=== PATIENT | male | born 1950 | race Caucasian/White ===

== ENCOUNTER 2024-07-17 20:33 | Inpatient (IN) | payer OTHER, SELFPAY ==
[2024-07-17] VITALS (11 sets, daily range): BP systolic 93–129; BP diastolic 57–86; BMI 33.0; BMI 32.7
--- NOTE | 2024-07-17 17:56 | ED.GENMED ---
History of Present Illness
General
Chief Complaint: Fever
Source: patient
History of Present Illness
History of Present Illness:
74-year-old male identified to have a presents to the emergency room by ambulance due to fever. Patient was noted to be hypoxic by paramedics placed on nonrebreather. Patient endorses cough, shortness of breath, headache. Patient also has a wound
on his right lower extremity for which she has been taking doxycycline.
Past History
Past History
ED Past Medical History: Arrthythmia, HTN, Hypercholesterolemia and IDDM
ED Past Surgical History: Cholecystectomy and Orthopedic
Social History
Tobacco: Former smoker
Alcohol: Occasional
Phy Exam
Physical Exam
Physical Exam:
General: Awake, Alert, Oriented X3. Appears ill but nontoxic
Vitals: Febrile, tachycardic, hypoxic
Head: Atraumatic
Eyes: Pupils equal, EOMI
Throat: Airway intact, no exudates
Neck: Trachea midline
Lungs: Clear and equal b/l
Heart: Regular rate, no murmurs
Abd: Soft, Nontender, No pulsatile mass
Neuro: Nonfocal
Skin: Flushed,
Extremities: There is a female show right lateral lower extremity.
Course
Orders/Labs/Results
Orders:
Orders
07/17/24 17:36
EKG [Electrocardiogram (*1)] Urgent
Reason for Study: Tachycardia
EKG- Treatment ONCE
07/17/24 17:55
0.9% Sodium Chloride 1000 ml [Nss] 1,000 ml IV BOLUS
Ipratropium/Albuterol Sulfate [Duoneb] 3 ml INH R NOW STA
CR Chest - 2 Views Urgent
Comment:
Reason For Exam: fever, hypoxia
07/17/24 18:00
Acetaminophen [Tylenol] 650 mg PO NOW STA
07/17/24 18:25
CBC/With Diff [Complete Blood Count/With Diff] Urgent
CMP [Comprehensive Metabolic Panel] Urgent
COVID-19 Antigen Urgent
Source: Nasal Swab
Lactate Level [Lactic Acid] Urgent
Urinalysis Reflex To Culture Urgent
Date Specimen was Collected: 07/17/24
Time Specimen was Collected: 17:36
Blood Culture Urgent
MICHAEL Source: Blood/Venous
Specimen Description:
Influenza A+B Rapid Molecular Urgent
MICHAEL Source: Nasal Swab
Specimen Description:
07/17/24 19:20
Azithromycin 500 mg/250 ml [Zithromax Infusion] 500 mg in 250 ml IV NOW
CefTRIAXone [Rocephin] 1,000 mg IV NOW STA
07/17/24 20:17
Admit/Transfer Patient As Directed
Co-Sign Provider:
Level of Care: Inpatient admission
Assign to:: Telemetry
Physician / Group: danielle
Diagnosis: acute hypoxic respiratory failure
Reason for Telemetry: Arrhythmia
Date to Stop Telemetry: 07/20/24
Time to Stop Telemetry: 11:00
Reason for Hospitalization: acute hypoxic respiratory failure
Expected length of stay greater than two midnights?: Yes
ELOS- Estimated Length of Stay in days: 3
I certify the patient meets the requirements for IP care: Yes
07/17/24 20:19
PRN Pain Medication Management As Directed
May give lesser potent ordered pain med per pt: Yes
preference::
Protocol:: Medication orders for pain may be administered in a
manner that supports deferring to patient preference
when the pt is:
- Requesting an ordered lesser potent pain medication.
Least to most potent pain medications are defined
as: acetaminophen < NSAID < tramadol < opioids
(morphine, oxycodone, hydromorphone).
- Requesting a lesser dose of the same medication IF
ORDERED.
- Requesting a less intrusive route of administration
if both routes are prescribed by the provider (PO <
IV).
07/17/24 20:21
Code Status As Directed
Resuscitation Status: Full Code
07/20/24 11:00
DC Protocol for Telemetry ONCE
Abnormal Lab Results
07/17/24
18:25
WBC 14.9 H 10^3/uL
(4.8-10.8)
RBC 4.34 L 10^6/uL
(4.70-6.10)
MCH 32.3 H pg
(27.0-31.0)
MPV 10.8 H fL
(7.4-10.4)
Abs Immat Gran (auto) 0.1 H 10^3/uL
(0-0.05)
Absolute Neuts (auto) 12.7 H 10^3/uL
(1.4-6.5)
Absolute Lymphs (auto) 0.9 L 10^3/uL
(1.2-3.4)
Absolute Monos (auto) 1.1 H 10^3/uL
(0.1-0.6)
Immature Gran % 0.6 H %
(0-0.5)
Neutrophils % 85.1 H %
(42.2-75.2)
Lymphocytes % 5.8 L %
(20.5-51.1)
Sodium 134 L mmol/L
(135-145)
Chloride 94 L mmol/L
(98-107)
Glucose 187 H mg/dl
(70-99)
07/17/24 18:25
07/17/24 18:25
Vital Signs
Initial and Last Documented VS:
Initial Vital Signs
BP
129/68
07/17/24 17:36
Last Documented Vital Signs
Temp Pulse Resp BP Pulse Ox
99.6 F 105 22 93/59 94
07/17/24 19:19 07/17/24 20:00 07/17/24 20:00 07/17/24 20:00 07/17/24 20:00
MDM/Problems Addressed
Differential Diagnosis Includes:
Bacterial pneumonia, COVID, acute bronchitis, cellulitis
MDM/Problems Addressed:
Patient's white blood cell count is 14.9. Chemistries are essentially unremarkable. Urine is negative. COVID test is negative. Chest x-ray shows a left lower lobe infiltrate. Patient started on antibiotics for community-acquired pneumonia.
Right lower extremity has a healing wound. There is some surrounding erythema please been taking Doxy for some days. I would not start any other treatment in the antibiotics for community-acquired ammonia.
*Radiology
Radiology exam reviewed: preliminary read by ED provider (Personally viewed patient's chest x-ray to left lower lobe infiltrate)
*Pulse Oximetry
Patient hypoxic: yes
*EKG
Interpreted by ED Provider?: Yes
Heart Rate: 109
Rate: tachycardiac
Rhythm: sinus tachycardia
Ischemia: non-specific ST changes
*Managed Care Provider Interpretation
Rate: tachycardiac
Interpretation: abnormal
Rhythm: sinus tachycardia
*Critical Care Note
Total Time (30-74mins, 75-104mins- exclusive of procedures): Not Applicable
Data Reviewed
Review of Other/Old Records Reveals: Discharge Summary
Patient Management
Social determinants of health affecting care: Strong social support
Discussion with other providers: Hospitalist
ED Attending Note
-
Portions of this chart may have been created with voice recognition software.� Occasional wrong word or��sound alike� substitutions may have occurred due to the inherent limitations of voice recognition software.
Discharge Plan
Departure
Patient Disposition: Admit
Date of Disposition: 07/17/24
Time of Disposition: 19:24
Admit to: Med/Surg
Presentation/result/management discussed w/ accepting MD/DO: Hospitalist
Condition: Fair
Discharge Problem:
Pneumonia, Hypoxia
Prescriptions:
No Action
primidone 50 MG tablet
150 mg PO HS
cyanocobalamin (vitamin B-12) 1,000 MCG tablet
1,000 mcg PO DAILY
repaglinide 1 MG tablet
1 mg PO MEALS
metoprolol succinate 25 MG tablet extended release 24 hr
12.5 mg PO DAILY
tramadol 50 MG tablet
50 mg PO Q8HPRN PRN (Reason: moderate-severe pain)
Patient Comments:
07/17/2024: last filled 07/17/24, 21 tabs for 7 days from [facility]
insulin degludec [Tresiba FlexTouch U-100] 100 UNIT/ML insulin pen
63 unit SC HS
triamterene-hydrochlorothiazid 37.5-25 mg Capsule
1 cap PO DAILY
Eliquis 5 mg tablet
5 mg PO BID Qty: 180 3RF
pantoprazole [pantoprazole] 40 mg tablet,delayed release (DR/EC)
40 mg PO BID Qty: 60 0RF
Rx Instructions:
Take twice a day for 30 days post procedure, then stop
doxycycline hyclate 100 mg capsule
100 mg PO BID
gabapentin 300 mg capsule
300 mg PO TID
tobramycin-dexamethasone 0.3-0.1 % drops,suspension
1 drp BOTH EYES BID
cholecalciferol (vitamin D3) 125 mcg (5,000 unit) Tablet
125 mcg PO DAILY
Mounjaro 7.5 mg/0.5 mL pen injector
7.5 mg SC TU
Interventions
Interventions:
*Risk Screen - Suicide Last Done: 07/17/24 17:40
*General Assessment Last Done: 07/17/24 17:40
*Neglect/Abuse Screening Last Done: 07/17/24 17:40
ED- Fall Risk Assessment Last Done: 07/17/24 18:31
*ED COVID-19 Vaccine History Last Done: 07/17/24 18:37
ED- Neurological Assessment Last Done: 07/17/24 18:31
ED-Skin Assessment Last Done: 07/17/24 18:31
Discharge Date and Time
Print Language: LIBYAN
[2024-07-17] MEDS: TYLENOL 650 MG PO (18:11)
[2024-07-17] MEDS: DUONEB 3 ML INH (18:12)
[2024-07-17] MEDS: NSS 1000 IV ×2 (18:24→22:16)
[2024-07-17 18:37] LABS: % Basophils 0.3 % (0-2); % Eosinophils 0.7 % (0-6); % Immature Granulocytes 0.6 % (0-0.5); % Lymphocytes 5.8 % (20.5-51.1); % Monocytes 7.5 % (1.7-9.3); % Neutrophils 85.1 % (42.2-75.2); Absolute Basophils 0.1 10^3/uL (0-0.2); Absolute Eosinophils 0.1 10^3/uL (0-0.7); Absolute Immature Granulocytes 0.1 10^3/uL (0-0.05); Absolute Lymphocytes 0.9 10^3/uL (1.2-3.4); Absolute Monocytes 1.1 10^3/uL (0.1-0.6); Absolute Neutrophils 12.7 10^3/uL (1.4-6.5); Hematocrit 39.1 % (39.0-52.0); Mean Corp Hgb Conc. 35.8 g/dL (33.0-37.0); Mean Corpuscular Hgb 32.3 pg (27.0-31.0); Mean Corpuscular Volume 90.1 fL (80.0-94.0); Mean Platelet Volume 10.8 fL (7.4-10.4); Nucleated Red Blood Cells % 0 % (-); Platelet Count 185 10^3/uL (130-400); Red Blood Cell Count 4.34 10^6/uL (4.70-6.10); Red Cell Dist. Width 12.8 % (11.5-14.5); White Blood Cell Count 14.9 10^3/uL (4.8-10.8)
[2024-07-17 18:42] LABS: Urine Albumin Trace (Neg - Trace); Urine Bilirubin Negative (Negative); Urine Character Clear (Clear); Urine Color Yellow; Urine Glucose Negative (Negative); Urine Ketone Negative (Negative); Urine Leukocyte Negative (Negative); Urine Nitrite Negative (Negative); Urine Occult Blood Negative (Negative); Urine Urobilinogen Negative (Neg - 1+)
[2024-07-17 18:50] LABS: Lactic Acid 1.5 mmol/L (0.7-2.0)
[2024-07-17 18:59] LABS: ALT (SGPT) 17 U/L (0-50); AST (SGOT) 28 U/L (17-59); Albumin 4.2 g/dl (3.5-5.0); Alkaline Phosphatase 79 U/L (38-126); Blood Urea Nitrogen 20 mg/dl (9-20); Carbon Dioxide 30 mmol/L (22-30); Chloride 94 mmol/L (98-107); Estimated Creatinine Clearance 87 ml/min; Glucose 187 mg/dl (70-99); Potassium 4.8 mmol/L (3.5-5.1); Sodium 134 mmol/L (135-145); Total Bilirubin 0.8 mg/dl (0.2-1.3); Total Protein 7.4 g/dl (6.3-8.2); eGFR > 60.00
[2024-07-17 19:07] LABS: COVID-19 Antigen Negative (Negative)
--- NOTE | 2024-07-17 19:43 | HPS.HSE ---
Family Physician
-
Family Physician: Isak Matta, DO
Chief Complaint
-
sob
cough
History of Present Illness
74 year old with PMH for atrial fib, type 2 DM, GERD, seizure,HTN presented to us with cough, with clear sputum, sob which is worse with exertion, headache and fever for past 4-5 days. he is been taking Tylenol as well as on doxy for past three days
for right LE wound. denied chest pain. denied dizzy or syncopal episode. denied abdominal pain,n,v,d. denied dysuria or hematuria. has chronic LE edema.
on arrival hypoxic on RA, requiring 2l of oxygen. chest x ray with pneumonia. received ceftriaxone and zithro in ER. admitting for further management.
Medical History
Past Medical History
Past Medical History: Reports Other
Additional Past Medical History:
Type 2 diabetes hypercholesterolemia
Essential tremor
Paroxysmal A-fib hypertension
Past Surgical History: Reports Other
Additional Past Surgical History:
Carpal tunnel release
basal cell excision
toe surgery
b/l Knee replacement
cholecystectomy
laminectomy
lumbar spine surgery
b/l cataract removal
cardiac ablation
melanoma removal
Social History
Tobacco: Former Smoker
Alcohol: None
Drug: None
Personal:
Living: With Family
Family History
Family History: Adopted
Allergies / Home Medications
Allergies reflects when Allergies were last updated in [employer].
Home Medications with original date entered in [employer]
Allergy/Medication List:
Allergies
Allergy/AdvReac Type Severity Reaction Status Date / Time
Penicillins Allergy Unknown A CHILD Verified 07/17/24 17:37
Home Medications
cyanocobalamin (vitamin B-12) 1,000 mcg tablet 1,000 mcg PO DAILY Supplement 08/19/21
primidone 50 mg tablet 150 mg PO HS Seizures 08/19/21
repaglinide 1 mg tablet 1 mg PO MEALS Diabetes 08/19/21
metoprolol succinate 25 mg tablet,extended release 24 hr 12.5 mg PO DAILY Blood pressure 11/23/21
insulin degludec 100 unit/mL (3 mL) subcutaneous pen (Tresiba FlexTouch U-100 insulin) 63 unit SC HS Diabetes 04/07/22
tramadol 50 mg tablet 50 mg PO Q8HPRN PRN moderate-severe pain 04/07/22
triamterene 37.5 mg-hydrochlorothiazide 25 mg capsule 1 cap PO DAILY 10/22/22
apixaban 5 mg tablet (Eliquis) 5 mg PO BID #180 tabs 11/01/22
pantoprazole 40 mg tablet,delayed release 40 mg PO BID #60 tabs 05/25/23
cholecalciferol (vitamin D3) 125 mcg (5,000 unit) tablet 125 mcg PO DAILY 07/17/24
doxycycline hyclate 100 mg capsule 100 mg PO BID 07/17/24
gabapentin 300 mg capsule 300 mg PO TID 07/17/24
tirzepatide 7.5 mg/0.5 mL subcutaneous pen injector (Mounjaro) 7.5 mg SC TU 07/17/24
tobramycin 0.3 %-dexamethasone 0.1 % eye drops,suspension 1 drp BOTH EYES BID 07/17/24
Review of Systems
-
Constitutional: Reports Fatigue
EENT: Reports No Symptoms
Respiratory: Reports Cough and Trouble Breathing
Cardiac: Reports No Symptoms
Abdomen/GI: Reports No Symptoms
: Reports No Symptoms
Musculoskeletal: Reports No Symptoms
Skin: Reports No Symptoms
Neurological: Reports Headache
Endocrine: Reports No Symptoms
Hematologic/Lymphatic: Reports No Symptoms
Psych: Reports No Symptoms
Physical Exam
Vital Signs
Vital Signs
Temp Pulse Resp BP Pulse Ox
99.6 F 107 30 96/60 94
07/17/24 19:19 07/17/24 19:15 07/17/24 19:15 07/17/24 19:15 07/17/24 19:15
Physical Exam
General: Well Developed, Well Nourished and No Apparent Distress
HEENT: NormoCephalic, Moist mucous membranes and Atraumatic
Respiratory: Clear
Cardiac: S1/S2 and Regular Rhythm; No Murmur or Rub
GI: Soft, Non Tender, Non Distended and Normal Bowel Sounds; No Organomegaly
Rectal: Deferred by Provider
Musculoskeletal: No Clubbing, No Cyanosis and Other (b/l LE wound)
Skin: Rash and Other (right LE chronic wound)
Neuro: AO x 3 and Nonfocal/grossly intact
Psych: Calm
Laboratory Results
-
07/17/24 18:25
07/17/24 18:25
Laboratory Results
Lactic Acid 1.5 mmol/L (0.7-2.0) 07/17/24 18:25
Total Bilirubin 0.8 mg/dl (0.2-1.3) 07/17/24 18:25
AST 28 U/L (17-59) 07/17/24 18:25
ALT 17 U/L (0-50) 07/17/24 18:25
Alkaline Phosphatase 79 U/L (38-126) 07/17/24 18:25
Data Reviewed
-
Diagnostic Radiology: Report Reviewed by me
Lab Data: Labs Reviewed by me
Impression/Plan
-
#acute hypoxic respiratory failure likely from pneumonia
-sepsis as evident by wbc 14.9,tachycardia
-UA and covid negative
-influenza negative
-chest x ray with Low lung volumes with a left retrocardiac airspace opacity, suspicious for pneumonia.
-blood culture sent from ER
-doxy and ceftriaxone continued
-nebs prn for sob/wheezing
-continue supplemental oxygen to keep sat>92
-wean as tolerated
-obtain sputum culture
#right LE wound
-wound care consulted
#DM type 2
-sliding scale
-check blood sugar
-metformin continued
-hold repaglinide
-Tresiba 40u at hs
#diabetic neuropathy
-gabapentin continued
#HTN
- Stable
-triamterene held due to soft BP
#Atrial Fibrillation paroxysmal
-eliquis,metoprolol continued
#GERD
-PPI ocntinued
#seizure
-primidone continued
#DVT Prophylaxis
-On eliquis
#COde status
-full code
[2024-07-17] MEDS: ROCEPHIN 1000 MG IV (19:59)
[2024-07-17] MEDS: ZITHROMAX INFUSION 250 IV (20:04)
--- NOTE | 2024-07-17 20:21 | W.PN.UPDATE ---
Update Note
Progress Note Update
This is an addendum to the H&P written by Rosetta Candelario on 07/17/2024.� Patient seen examined independently with CAR CLERK PULLMAN.
74-year-old male here with left lower lobe pneumonia.� Has been on doxycycline for 3 weeks for right lower calf wound which appears to be healing.
COVID-negative.� Check sputum culture.� Blood culture pending.� Broaden antibiotics to ceftriaxone/doxycycline.� IV fluids.
--- NOTE | 2024-07-17 21:30 | PTCARENOTE ---
Pt transferred from ED to 3W via stretcher. Pt standby from stretcher to bed, AAOX3 able to make needs known, vitals obtained and stable. Oriented to room, call martinez within reach will continue to monitor.
[2024-07-17] MEDS: NEURONTIN 300 MG PO (22:17)
[2024-07-17] MEDS: MUCINEX 600 MG PO (22:17)
[2024-07-17] MEDS: LANTUS 0.4 UNITS SC (22:17)
[2024-07-17] MEDS: MYSOLINE 150 MG PO (22:17)
[2024-07-17] MEDS: VIBRAMYCIN 260 MG IV (22:22)
[2024-07-17 22:29] LABS: Glucose - Point of Care 158 mg/dl (70-99)
[2024-07-18 03:45] VITALS: BP 114/64
[2024-07-18 05:58] VITALS: BMI 33.0
[2024-07-18 06:19] LABS: Hematocrit 34.7 % (39.0-52.0); Hemoglobin 12.3 g/dL (13.0-18.0); Mean Corp Hgb Conc. 35.4 g/dL (33.0-37.0); Mean Corpuscular Hgb 32.5 pg (27.0-31.0); Mean Corpuscular Volume 91.8 fL (80.0-94.0); Mean Platelet Volume 11.1 fL (7.4-10.4); Platelet Count 166 10^3/uL (130-400); Red Blood Cell Count 3.78 10^6/uL (4.70-6.10); Red Cell Dist. Width 13.1 % (11.5-14.5); White Blood Cell Count 12.3 10^3/uL (4.8-10.8)
[2024-07-18 06:55] LABS: Blood Urea Nitrogen 19 mg/dl (9-20); Calcium 8.7 mg/dl (8.4-10.2); Carbon Dioxide 28 mmol/L (22-30); Chloride 97 mmol/L (98-107); Estimated Creatinine Clearance 87 ml/min; Glucose 130 mg/dl (70-99); Sodium 135 mmol/L (135-145); eGFR > 60.00
[2024-07-18 07:00] VITALS: BP 111/71
[2024-07-18 07:55] LABS: Glycohemoglobin (HgbA1c) 7.5 % (4.0-5.6)
[2024-07-18 08:00] LABS: Glucose - Point of Care 135 mg/dl (70-99)
[2024-07-18] MEDS: NEURONTIN 300 MG PO ×3 (08:10→22:10)
[2024-07-18] MEDS: TOPROL XL 12.5 MG PO (08:10)
[2024-07-18] MEDS: MUCINEX 600 MG PO ×2 (08:10→20:25)
[2024-07-18] MEDS: ELIQUIS 5 MG PO ×2 (08:10→20:25)
[2024-07-18] MEDS: TOBRADEX EYE DROPS 1 DROP BOTH EYES ×2 (08:11→20:26)
[2024-07-18] MEDS: NOVOLOG FLEXPEN-LOW RESISTANCE SC (08:11)
[2024-07-18] MEDS: PROTONIX 40 MG PO ×2 (08:13→20:24)
[2024-07-18 09:56] VITALS: BP 128/62; PULSE 89; O2SAT 91
[2024-07-18] MEDS: VIBRAMYCIN 260 MG IV ×2 (10:09→22:09)
--- NOTE | 2024-07-18 10:41 | WOUNDNOTE ---
R LATERAL LOWER LEG
--- NOTE | 2024-07-18 10:42 | WOUNDNOTE ---
LEELA RN note: Patient admitted with Pneumonia and hypoxia.
See H&P for complete history. Lives with .
PMH: IDDM,HTN, A Fib-Eliquis, B/L knee replacements, laminectomy, melanoma excision and ex smoker.
Wound Location and type/assessment: Patient admitted with: Abrasion on R lateral lower leg from slipping off concrete step, patient reports. Scattered dry scabs, no drainage, no signs of infection. Legs with chronic +1 lower leg edema, palpable
pedal pulses. Does not use compression stockings and states he will not use when home. Patient able to turn on own, sacrum and heels intact. Patient reports at home he ambulates on own, has a cane if necessary. Lives with who can help out with
care as needed.
Appetite: Good.
Pressure redistribution devices in place: On Accumax bed, turns self and ambulates self. Pillow placed under calves.
Plan: R lateral lower leg applied smear of honey gel to dry scabs, adaptic, gauze and Medipore tape, [place] wrap knee high. Instructed patient the importance of leg elevation when sitting and to do at home if not going to use compression. Patient
states he will do as instructed. Will confirm orders with hospitalist and updated nurse Juárez.
Updated care plan and will follow as needed.
Note to case management of equipment requested for discharge: None.
Recommend follow up at wound care center if not healing, upon discharge.
--- NOTE | 2024-07-18 10:48 | W.PN.HOSP.TC ---
Today's Communication/Plan
-
continue Abx
continue wound care
wean O2
Assessment / Plan
Assessment / Plan
Assessment:
Sepsis POA (tachycardia, leukocytosis) from community acquired PNA
Acute hypoxic respiratory insufficiency on 2L NC
- wean O2
- continue IVF
- continue Rocephin, Doxy, day 2
- follow cultures
- symptomatic control
RLE wound, POA
RLE Cellulitis, POA
- continue Doxy
- follow wound care recs
Type 2 DM
- continue MFM
- holding repaglinide
- continue Tresiba
- SSI
- A1c: 7.5%
diabetic neuropathy
- gabapentin continued
Essential HTN
- Stable
- triamterene held due to sepsis
Parox A. Fib
- continue Eliquis/BB
GERD
- PPI continued
seizure
- primidone continued
DVT Prophylaxis: Eliquis
Code: Full
Anticipated Discharge: 24 - 48 hours
Subjective/Interval History
-
Date of Service: July 18, 2024
states breathing improving
Objective Data
-
Labs:
Laboratory Results
07/18/24
05:36
WBC 12.3 H
Hgb 12.3 L
Hct 34.7 L
Plt Count 166
Sodium 135
Potassium 4.0
Chloride 97 L
Carbon Dioxide 28
BUN 19
Creatinine 0.9
Glucose 130 H
Calcium 8.7
Vital Signs:
Vital Signs
Temp Pulse Resp BP Pulse Ox
98.0 F 86 17 111/71 94
07/18/24 07:00 07/18/24 08:10 07/18/24 07:00 07/18/24 08:10 07/18/24 07:00
I&O
07/17/24 07/18/24 07/19/24
06:59 06:59 06:59
Intake Total 240 / 240
Output Total 500 / 500
Balance -260 / -260
Physical Exam
-
General: No Apparent Distress
HEENT: Normocephalic and Atraumatic
Respiratory: Negative Wheezes
Cardiac: Regular Rhythm and S1/S2
GI: Soft
Musculoskeletal: No Edema
Neuro: AO x 3
Hematologic / Lymphatic: No Lymphadenopathy
Psych: Calm
Data Reviewed
-
Total Time Spent with Patient (in minutes): 41
Labs: Labs Reviewed by me
[2024-07-18 11:00] VITALS: BP 107/60
[2024-07-18] MEDS: NSS IV (11:09)
[2024-07-18 11:40] LABS: Glucose - Point of Care 191 mg/dl (70-99)
[2024-07-18] MEDS: NOVOLOG FLEXPEN-LOW RESISTANCE 1 UNITS SC (12:54)
[2024-07-18 15:00] VITALS: BP 120/66
--- NOTE | 2024-07-18 15:28 | CM ---
Pt admitted for Sepsis POA (tachycardia, leukocytosis) from community acquired PNA and Acute hypoxic respiratory insufficiency on 2L NC
Met with pt at bedside
Pt reports he lives in a 3 story condo with his , spouse and grand-daughter
Reports independent with ADL's, driving
DME - cane, rolling walker, wheel chair
SNF - denies past hx
HH - denies past hx
Has ride at d/c
PCP - Dr Isak Matta
Pharm - [facility]
CM will follow for d/c needs
Plan - anticipate home no needs
[2024-07-18 16:54] LABS: Glucose - Point of Care 235 mg/dl (70-99)
[2024-07-18] MEDS: NOVOLOG FLEXPEN-LOW RESISTANCE 2 UNITS SC (17:29)
[2024-07-18] MEDS: STERILE WATER FOR INJECTION 10 ML IV (20:25)
[2024-07-18] MEDS: ROCEPHIN 1000 MG IV (20:26)
[2024-07-18 21:58] LABS: Glucose - Point of Care 261 mg/dl (70-99)
[2024-07-18] MEDS: MYSOLINE 150 MG PO (22:09)
[2024-07-18] MEDS: LANTUS 0.4 UNITS SC (22:10)
[2024-07-18 23:34] VITALS: BP 120/63
--- NOTE | 2024-07-18 23:38 | PTCARENOTE ---
Patient is angry and adamant to turn off IV ATB ( Doxycycline) as machine beeping for ' distal occlusion'. Able to flush IV at this time with slight difficulty. Patient refusing for IV team at this time saying ' i just want to go to sleep'. Turned
off ATB as per patient refused rest of the ATB to be infused.
[2024-07-19 06:00] VITALS: BMI 33.0
[2024-07-19 06:42] LABS: Hematocrit 35.6 % (39.0-52.0); Hemoglobin 12.5 g/dL (13.0-18.0); Mean Corp Hgb Conc. 35.1 g/dL (33.0-37.0); Mean Corpuscular Hgb 32.4 pg (27.0-31.0); Mean Corpuscular Volume 92.2 fL (80.0-94.0); Mean Platelet Volume 11.1 fL (7.4-10.4); Platelet Count 168 10^3/uL (130-400); Red Blood Cell Count 3.86 10^6/uL (4.70-6.10); Red Cell Dist. Width 12.9 % (11.5-14.5); White Blood Cell Count 10.2 10^3/uL (4.8-10.8)
[2024-07-19 07:16] LABS: Blood Urea Nitrogen 20 mg/dl (9-20); Calcium 9.1 mg/dl (8.4-10.2); Carbon Dioxide 27 mmol/L (22-30); Chloride 99 mmol/L (98-107); Estimated Creatinine Clearance 87 ml/min; Glucose 161 mg/dl (70-99); Potassium 4.2 mmol/L (3.5-5.1); Sodium 135 mmol/L (135-145); eGFR > 60.00
[2024-07-19 07:34] LABS: Glucose - Point of Care 180 mg/dl (70-99)
[2024-07-19] MEDS: NEURONTIN 300 MG PO (07:46)
[2024-07-19] MEDS: ELIQUIS 5 MG PO (07:47)
[2024-07-19] MEDS: TOPROL XL 12.5 MG PO (07:47)
[2024-07-19] MEDS: PROTONIX 40 MG PO (07:47)
[2024-07-19] MEDS: MUCINEX 600 MG PO (07:47)
[2024-07-19] MEDS: TOBRADEX EYE DROPS 1 DROP BOTH EYES (07:48)
[2024-07-19 07:52] VITALS: BP 150/82
[2024-07-19] MEDS: NOVOLOG FLEXPEN-LOW RESISTANCE 300 UNITS SC (07:52)
[2024-07-19] MEDS: VIBRAMYCIN 260 MG IV (10:37)
--- NOTE | 2024-07-19 11:02 | W.PN.HOSP.TC ---
Today's Communication/Plan
-
dc to home
PCP f/u 1 week
Assessment / Plan
Assessment / Plan
Assessment:
Sepsis POA (tachycardia, leukocytosis) from community acquired PNA
Acute hypoxic respiratory insufficiency on 2L NC
- currently on RA
- continue IVF
- continue Rocephin, Doxy, day 3. switch to PO.
- follow cultures
- symptomatic control
RLE wound, POA
RLE Cellulitis, POA
- wound care eval: Abrasion on R lateral lower leg from slipping off concrete step, patient reports. Scattered dry scabs
- continue Doxy
- follow wound care recs
Type 2 DM
- continue MFM
- holding repaglinide
- continue Tresiba
- SSI
- A1c: 7.5%
diabetic neuropathy
- gabapentin continued
Essential HTN
- Stable
- triamterene held due to sepsis
Parox A. Fib
- continue Eliquis/BB
GERD
- PPI continued
seizure
- primidone continued
DVT Prophylaxis: Eliquis
Code: Full
More than 30 minutes spent in discharge including
Final examination of the patient
Summarizing hospital stay
Instructions for continuing care to all relevant caregivers
Preparation of discharge records, prescriptions, and referral forms
Total time spent (in minutes): 41
Anticipated Discharge: Today
Subjective/Interval History
-
Date of Service: July 19, 2024
doing well, off O2
Objective Data
-
Labs:
Laboratory Results
07/19/24
05:14
WBC 10.2
Hgb 12.5 L
Hct 35.6 L
Plt Count 168
Sodium 135
Potassium 4.2
Chloride 99
Carbon Dioxide 27
BUN 20
Creatinine 0.9
Glucose 161 H
Calcium 9.1
Vital Signs:
Vital Signs
Temp Pulse Resp BP Pulse Ox
98 F 105 18 150/82 92
07/19/24 07:52 07/19/24 07:52 07/19/24 07:52 07/19/24 07:52 07/19/24 07:52
I&O
07/18/24 07/19/24 07/20/24
06:59 06:59 06:59
Intake Total 240 / 240 1210 / 1210 260 / 260
Output Total 500 / 500 650 / 650
Balance -260 / -260 560 / 560 260 / 260
Physical Exam
-
General: No Apparent Distress
HEENT: Normocephalic and Atraumatic
Respiratory: Negative Wheezes
Cardiac: Regular Rhythm and S1/S2
GI: Soft
Genito-urinary: No Costovertebral Tender
Musculoskeletal: No Edema
Neuro: AO x 3
Hematologic / Lymphatic: No Lymphadenopathy
Psych: Calm
Data Reviewed
-
Total Time Spent with Patient (in minutes): 41
Labs: Labs Reviewed by me
--- NOTE | 2024-07-19 11:14 | W.DS.TRANS ---
DC Summary - Solution Developer
-
Discharge Instructions:
Discharge Diagnosis/Procedures pneumonia, RLE abrasion with RLE cellulitis
Diet Diabetic, Carb Controlled
Activity As tolerated
Bathing Restrictions None
Instructions:
Stand-Alone Forms:
Changes to Home Medications: No
Discharge Medications:
DC Medications w/original date entered in [employer]
cyanocobalamin (vitamin B-12) 1,000 mcg tablet 1,000 mcg PO DAILY Supplement 08/19/21
primidone 50 mg tablet 150 mg PO HS Seizures 08/19/21
repaglinide 1 mg tablet 1 mg PO MEALS Diabetes 08/19/21
metoprolol succinate 25 mg tablet,extended release 24 hr 12.5 mg PO DAILY Blood pressure 11/23/21
insulin degludec 100 unit/mL (3 mL) subcutaneous pen (Tresiba FlexTouch U-100 insulin) 63 unit SC HS Diabetes 04/07/22
tramadol 50 mg tablet 50 mg PO Q8HPRN PRN moderate-severe pain 04/07/22
triamterene 37.5 mg-hydrochlorothiazide 25 mg capsule 1 cap PO DAILY Blood Pressure 10/22/22
apixaban 5 mg tablet (Eliquis) 5 mg PO BID #180 tabs 11/01/22
pantoprazole 40 mg tablet,delayed release 40 mg PO BID #60 tabs 05/25/23
cholecalciferol (vitamin D3) 125 mcg (5,000 unit) tablet 125 mcg PO DAILY Supplement 07/17/24
gabapentin 300 mg capsule 300 mg PO TID pain 07/17/24
tirzepatide 7.5 mg/0.5 mL subcutaneous pen injector (Mounjaro) 7.5 mg SC TU diabetes 07/17/24
tobramycin 0.3 %-dexamethasone 0.1 % eye drops,suspension 1 drp BOTH EYES BID Eye Condition 07/17/24
cefdinir 300 mg capsule 300 mg PO BID #20 caps 07/19/24
doxycycline hyclate 100 mg capsule 100 mg PO BID Infection #20 caps 07/19/24
guaifenesin 600 mg tablet, extended release 12 hr 600 mg PO Q12 #20 tabs 07/19/24
Home Medication Changes
Pending Results: No
Total time spent discharging patient (in min): 41
--- NOTE | 2024-07-19 11:28 | CM ---
Pt for discharge today
Chart reviewed. Met with pt
Pt has ride home with family member
Discussed IMM
Plan - anticipate home no needs
[2024-07-19 11:44] VITALS: BP 126/74; PULSE 89; O2SAT 92
[2024-07-19 12:22] LABS: Glucose - Point of Care 205 mg/dl (70-99)
[2024-07-19] MEDS: NOVOLOG FLEXPEN-LOW RESISTANCE 2 UNITS SC (12:46)
[2024-07-19 12:54] VITALS: BP 124/71
== END 2024-07-19 13:45 | disposition home or self-care (01) | DRG 871 ==
LOC: 3 WEST ACU 20:33
PROVIDERS: Registered Nurse; ADMITTING PHYSICIAN Hospitalist; ATTENDING PHYSICIAN Internal Medicine; EMERGENCY PHYSICIAN Emergency Medicine; FAMILY PHYSICIAN Family Medicine
DX: A41.9 Sepsis, unspecified organism (principal); J96.01 Acute respiratory failure with hypoxia; L03.115 Cellulitis of right lower limb; E11.40 Type 2 diabetes mellitus with diabetic neuropathy, unspecified; I10 Essential (primary) hypertension; G40.909 Epilepsy, unspecified, not intractable, without status epilepticus; E78.00 Pure hypercholesterolemia, unspecified; G25.0 Essential tremor; I48.0 Paroxysmal atrial fibrillation; K21.9 Gastro-esophageal reflux disease without esophagitis; S80.811A Abrasion, right lower leg, initial encounter; W18.49XA Other slipping, tripping and stumbling without falling, initial encounter; Z79.01 Long term (current) use of anticoagulants; Z79.4 Long term (current) use of insulin; Z79.899 Other long term (current) drug therapy; Z87.891 Personal history of nicotine dependence; Z85.820 Personal history of malignant melanoma of skin; Z85.828 Personal history of other malignant neoplasm of skin; Z90.49 Acquired absence of other specified parts of digestive tract; Z88.0 Allergy status to penicillin; Z96.653 Presence of artificial knee joint, bilateral
CPT/HCPCS: 71046; 80048; 80053; 81003; 82962; 83036; 83605; 85025; 85027; 87040; 87205; 87502; 87811; 93005; 94640; 96374; 96375; 97116; 97162; 97530; 99285

== ENCOUNTER 2024-12-04 07:36 | Inpatient (IN) | payer OTHER, SELFPAY ==
[2024-11-27 11:00] VITALS: BMI 32.1
[2024-11-27 11:31] LABS: % Basophils 0.7 % (0-2); % Eosinophils 2.6 % (0-6); % Immature Granulocytes 0.4 % (0-0.5); % Lymphocytes 17.7 % (20.5-51.1); % Monocytes 8.7 % (1.7-9.3); % Neutrophils 69.9 % (42.2-75.2); Absolute Basophils 0.1 10^3/uL (0-0.2); Absolute Eosinophils 0.2 10^3/uL (0-0.7); Absolute Lymphocytes 1.3 10^3/uL (1.2-3.4); Absolute Monocytes 0.6 10^3/uL (0.1-0.6); Absolute Neutrophils 5.2 10^3/uL (1.4-6.5); Hematocrit 41.7 % (39.0-52.0); Hemoglobin 14.4 g/dL (13.0-18.0); Mean Corp Hgb Conc. 34.5 g/dL (33.0-37.0); Mean Corpuscular Hgb 32.1 pg (27.0-31.0); Mean Corpuscular Volume 93.1 fL (80.0-94.0); Mean Platelet Volume 11.3 fL (7.4-10.4); Nucleated Red Blood Cells % 0 % (-); Platelet Count 210 10^3/uL (130-400); Red Blood Cell Count 4.48 10^6/uL (4.70-6.10); White Blood Cell Count 7.4 10^3/uL (4.8-10.8)
[2024-11-27 11:36] LABS: INR 1.05
[2024-11-27 11:46] LABS: ALT (SGPT) 14 U/L (0-50); AST (SGOT) 22 U/L (17-59); Albumin 4.2 g/dl (3.5-5.0); Alkaline Phosphatase 81 U/L (38-126); Blood Urea Nitrogen 30 mg/dl (9-20); Calcium 9.6 mg/dl (8.4-10.2); Carbon Dioxide 31 mmol/L (22-30); Chloride 98 mmol/L (98-107); Estimated Creatinine Clearance 77 ml/min; Glucose 223 mg/dl (70-99); Potassium 4.7 mmol/L (3.5-5.1); Sodium 139 mmol/L (135-145); Total Bilirubin 0.3 mg/dl (0.2-1.3); Total Protein 7.7 g/dl (6.3-8.2); eGFR > 60.00
[2024-12-04] VITALS (11 sets, daily range): BP systolic 84–128; BP diastolic 64–80
--- NOTE | 2024-12-04 07:24 | W.PN.UPDATE ---
Update Note
Progress Note Update
Reviewed MR. Simons with the heart team in the preWatchman SDM meeting and discussed a 24/27 mm device. Will confirm with intraop imaging. Will continue Eliquis 5mg BID x 3 months until 3 month f/u NIGEL.
[2024-12-04 08:43] LABS: Glucose - Point of Care 91 mg/dl (70-99)
[2024-12-04] MEDS: NSS 500 IV (08:58)
--- NOTE | 2024-12-04 09:49 | WATCHMAN.MD ---
Watchman Implant
-
ELECTROPHYSIOLOGY/INTERVENTIONAL PROCEDURE REPORT
Date of Procedure: December 04, 2024
Referring: Christopher Peters
Assisting Physician: Jose Stephens
PROCEDURES:
1. Left atrial appendage occlusion device using 20 mm WATCHMAN FLX device
2. Ultrasound-guided right common femoral venous access
INDICATION: Indication for long-term full anticoagulation for underlying atrial fibrillation with contraindication for long-term full anticoagulation.
ACCESS: Right common femoral vein, 16Fr sheath and 9Fr. sheaths, under US guidance using micropunture kit.
HEMODYNAMICS : (mmHg)
LA Pressure: 6
PROCEDURE REPORT:
After informed consent and patient safety 'Timeout' the patient was intubated and sedated by the anesthesiology service. Under ultrasound guidance, the right femoral vein was accessed by Dr. Rossi Freeman twice for transseptal puncture and
intracardiac ultrasound, respectively. Concomitant transesophageal echocardiogram was performed by Dr.Eric Salgado
Baseline NIGEL images revealed a trace pericardial effusion.
After ruling out a left atrial appendage thrombus, the patient was heparinized for an ACT between 350-400 seconds and under NIGEL and intracardiac ultrasound guidance transseptal puncture was performed by Dr. Rossi Freeman using the versa cross
[place] trans-septal system in an inferior position on the inferior-superior axis and a mid position on the anterior-posterior axis. Left atrial pressure was 6 millimeters mercury.
Once transseptal puncture was performed over the [place] versacross wire parked in the body of left atrium, the watchman access double curve sheath was advanced over the [place] versacross sheath. A 5 Nepali pigtail catheter was placed into the left
atrial appendage and an appendage gram was performed using intravenous contrast dye demonstrating an anatomy that was suitable likely for a 24 mm WATCHMAN FLX device.
After appropriately prepping the device, Dr. Jose Stephens initially deployed the 24 mm device and recaptured twice given significant shoulder. At this point we decided to switch it out for a 20 mm device given lack of significant depth to
allow for a larger device. He then successfully deployed a 20 mm WATCHMAN FLX device. Device showed excellent positioning with no leaks post device deployment. 9 (one view) to 10 (three views) % compression was noted in the device after deployment.
A 'tug-test' was performed demonstrating stability of the device. Given PASS criteria were met, the device was then released successfully by Dr. Jose Stephens
Post procedure, NIGEL imaging demonstrated no new or worse pericardial effusion. Sheaths and catheters were removed from the left atrium and heparin was reversed using protamine. Catheters removed from the femoral veins with [id number] suture
applied. The patient tolerated the procedure well.
RADIATION SUMMARY: Fluoro Time (min): 11.5, Dose (mGy): 161.12, DAP (Gy.cm2) : 16.4
Closure Device: Figure of 8 suture
CONCLUSIONS
1. Successful deployment of 20 mm WATCHMAN FLX device under NIGEL guidance.
RECOMMENDATIONS
1. Plan for uninterrupted 5 mg of Eliquis twice daily.
2. 90-day NIGEL post procedure to assess stability of device and rule out any brenda-device leaks. If no significant leak or device related thrombus noted at 3-month NIGEL, plan to discontinue Eliquis at that point and initiate daily BB aspirin 81 mg
indefinitely. Of note, at post procedure NIGEL leaks > 5mm are significant and require chronic full anticoagulation or consideration for leak closure. Brenda-device leaks between 3 and 5 mm may also carry an increased risk. These patients will need
individualized risk assessment and discussion with Watchman team. Leaks < 3 mm are generally considered non-significant. With leak of any size suggestion is to check NIGEL 12 mo out from implant.
3. Figure of 8 suture removal prior to discharge.
Copy to: Christopher Peters
Rossi Freeman MD, [facility], [facility]
[2024-12-04 10:28] LABS: ACT-LR - POC 265 Seconds (116-155)
[2024-12-04 10:45] LABS: ACT-LR - POC 261 Seconds (116-155)
--- NOTE | 2024-12-04 11:25 | WATCHMAN.MD ---
Watchman Implant
-
WATCHMAN LEFT ATRIAL APPENDAGE CLOSURE DEVICE REPORT
Date: December 04, 2024
Referring Printing Grey Cloth Tender: Dr. Christopher Peters
Primary Care Provider: Dr Isak Matta
History:
Recurrent atrial fibrillation, high background thromboembolic risk and high risk of major bleeding complications given his recurrent falls.
Watchman Team:
NIGEL: Dr. Jose Salgado D.O..
Transseptal diesel plant operator: Dr Rossi Freeman M.D.
Implanter: Dr Jose Stephens M.D.
Procedure: Watchman left atrial appendage closure.
The patient was placed under general anesthesia by anesthesia.
A NIGEL probe was placed.
Ultrasound Guidance with real-time visualization of needle insertion and vessel patency performed by nd for femoral venous Vascular Access. Images were taken and saved for the patient's permanent record. Imaging findings typical femoral venous
anatomy. Direct visualization of needle puncture into the femoral vein was observed and recorded.
A 10 Fr sheath was placed in the right femoral vein for ICE.
16 Fr sheath was placed via the right femoral vein to allow access for the watchman sheath
Heparin was administered to goal ACT 350-400 seconds. Fluid bolus was given.
Intracardiac ultrasound catheter was placed in the right atrium identifying the intraatrial septum for transseptal puncture.
Transseptal puncture was performed By Dr Freeman. This entailed advancing a sheath with dilator into the superior vena cava and withdrawing both (monitoring intracardiac ultrasound, fluoroscopy and tip pressure) with the tip oriented toward the atrial
septum. The fossa ovalis was engaged (indicated by sudden displacement of the sheath tip as well as tenting of the fossa seen on intracardiac ultrasound). [employer] transseptal system was used. Left atrial catheter position was confirmed by
echocardiographic imaging, pressure monitoring (LA mean pressure 10 mm Hg) and fluoroscopy. The sheath was advanced over the dilator and positioned in the left atrium.
Dr Jose Stephens positioned and deployed the Watchman device.
The 14 Portuguese watchman access system sheath double curve was substituted for the transeptal sheath. A 5 Portuguese curved pigtail was then substituted for the guidewire through the watchman sheath to the ostium of the left atrial appendage. The 5
Portuguese pigtail was advanced into the left atrial appendage and angiography was performed. This allowed additional measurements assessing left atrial appendage ostium size and TESS morphology.
The pigtail catheter was removed from the access sheath. A 24 mm Watchman device was flushed and then placed into the watchman access sheath and advanced through the sheath. The Watchman was clamped into the sheath. The device was deployed into
the left atrial appendage. Assessment finds that this device is slightly oversized. This device was captured in deployment was performed with a 20 mm Watchman device.
The PASS criteria were met. The stability tug test was performed and passed. Angiography and transesophageal echocardiogram revealed no leaks nor jets. The position was confirmed on angiography and transesophageal echo and there were no
significant shoulders. Compression ranges from 9% to 10 %.
After meeting overall PASS release criteria the device was released into the left atrial appendage.
The watchman access sheath was then removed through the transseptal into the IVC. A figure 8 suture closure was performed at the site of the femoral venous puncture and the sheath as it was removed.
Impression:
- Transeptal puncture by Dr Freeman.
- Successful DEPLOYMENT of 20 mm LAAO (Watchman) by Dr Jose Stephens.
- Ultrasound guidance for vascular access
Recommended anticoagulation strategy for this specific patient is:
- Uninterrupted Eliquis 5 mg twice daily
- Transesophageal echocardiogram in 3 months
- If no significant leak or device related thrombus at 3 months transesophageal echocardiogram, stop Eliquis and initiate aspirin 81 mg daily
At post procedure NIGEL leaks > 5mm are significant and require chronic full anticoagulation or consideration for leak closure. Brenda-device leaks between 3 and 5 mm may also carry an increased risk. These patients will need individualized risk
assessment and discussion with Watchman team. Leaks < 3 mm are generally considered non-significant. With leak of any size suggestion is to check NIGEL 12 mo out from implant.
- [facility] office visit in 8-10 weeks
- Plan for NIGEL in 3 months
- Continue cardiovascular care with Dr. Peters in 6 months.
cc:
Dr. Christopher Peters
Dr Isak Matta
[2024-12-04 11:28] LABS: Glucose - Point of Care 84 mg/dl (70-99)
--- NOTE | 2024-12-04 15:42 | W.PN.UPDATE ---
Update Note
Progress Note Update
74 yo WM s/p 24mm Watchman device implant. He denies cp, sob, baldomero diet, voiding, amb w/o dizziness, R fem site c/d/i no HT, soft, EKG SR. He will resume Eliquis tonight at home. Activity restrictions reviewed. 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 He is for
d/c home after 330pm.
--- NOTE | 2024-12-04 15:48 | W.DS.TRANS ---
DC Summary - Medical Biller/Coder
-
Discharge Instructions:
Discharge Diagnosis/Procedures Watchman implant
Diet Low Cholesterol,Diabetic, Carb Controlled
Driving Restrictions No driving for 24 hours
Others Tests A NIGEL is scheduled for you on 03/08/2025 at
[facility] with Dr. White. You will
receive information in the mail and a call the
day prior with arrival time.
Instructions:
Stand-Alone Forms: DC Instructions- Cath/EP Lab
Changes to Home Medications: No
Discharge Medications:
DC Medications w/original date entered in [facility]
cyanocobalamin (vitamin B-12) 1,000 mcg tablet 1,000 mcg PO DAILY Supplement 08/19/21
primidone 50 mg tablet 250 mg PO HS benign tremors 08/19/21
repaglinide 1 mg tablet 1 mg PO MEALS Diabetes 08/19/21
metoprolol succinate 25 mg tablet,extended release 24 hr 25 mg PO QPM Blood pressure 11/23/21
insulin degludec 100 unit/mL (3 mL) subcutaneous pen (Tresiba FlexTouch U-100 insulin) 63 unit SC HS Diabetes 04/07/22
tramadol 50 mg tablet 50 mg PO Q8HPRN PRN moderate-severe pain 04/07/22
triamterene 37.5 mg-hydrochlorothiazide 25 mg capsule 1 cap PO DAILY Blood Pressure 10/22/22
apixaban 5 mg tablet (Eliquis) 5 mg PO BID #180 tabs 11/01/22
cholecalciferol (vitamin D3) 125 mcg (5,000 unit) tablet 125 mcg PO DAILY Supplement 07/17/24
gabapentin 300 mg capsule 300 mg PO TID pain 07/17/24
tirzepatide 7.5 mg/0.5 mL subcutaneous pen injector (Mounjaro) 7.5 mg SC TU diabetes 07/17/24
magnesium 250 mg tablet 1,000 mg PO DAILY 11/23/24
diphenhydramine 25 mg-acetaminophen 500 mg tablet (Tylenol PM Extra Strength) 2 tab PO HS 11/27/24
multivitamin 1 tab PO DAILY 11/27/24
Home Medication Changes
Pending Results: No
== END 2024-12-04 15:50 | disposition home or self-care (01) | DRG 274 ==
LOC: CATH-IN 07:36
PROVIDERS: ADMITTING PHYSICIAN Internal Medicine Interventional Cardiology; FAMILY PHYSICIAN Family Medicine
PROC: 02L73DK Occlusion of Left Atrial Appendage with Intraluminal Device, Percutaneous Approach (ICD-10-PCS; 2024-12-04)
PROC: B24CZZ4 Ultrasonography of Pericardium, Transesophageal (ICD-10-PCS; 2024-12-04)
DX: I48.0 Paroxysmal atrial fibrillation (principal); I11.9 Hypertensive heart disease without heart failure; I71.21 Aneurysm of the ascending aorta, without rupture; G47.00 Insomnia, unspecified; G25.0 Essential tremor; E78.00 Pure hypercholesterolemia, unspecified; E66.9 Obesity, unspecified; E11.40 Type 2 diabetes mellitus with diabetic neuropathy, unspecified; E53.8 Deficiency of other specified B group vitamins; E55.9 Vitamin D deficiency, unspecified; N32.81 Overactive bladder; Z68.32 Body mass index [BMI] 32.0-32.9, adult; Z79.01 Long term (current) use of anticoagulants; Z79.4 Long term (current) use of insulin; Z87.891 Personal history of nicotine dependence; Z88.0 Allergy status to penicillin; Z96.651 Presence of right artificial knee joint
CPT/HCPCS: 33340; 36415; 76937; 80053; 82962; 85025; 85347; 85610; 86850; 86900; 86901; 87070; 93005; 93355; C1892; C1894; Q9967

== ENCOUNTER 2025-03-08 06:52 | Day surgery (SDC) | payer OTHER, SELFPAY ==
[2025-03-08 07:48] LABS: Glucose - Point of Care 109 mg/dl (70-99)
== END 2025-03-08 09:54 | disposition home or self-care (01) ==
LOC: CATH 06:52
PROVIDERS: ATTENDING PHYSICIAN Internal Medicine Cardiovascular Disease; FAMILY PHYSICIAN Family Medicine; OTHER PHYSICIAN Internal Medicine Cardiovascular Disease
DX: Z45.09 Encounter for adjustment and management of other cardiac device (principal); I48.0 Paroxysmal atrial fibrillation; I08.3 Combined rheumatic disorders of mitral, aortic and tricuspid valves; I10 Essential (primary) hypertension; E78.00 Pure hypercholesterolemia, unspecified; E11.40 Type 2 diabetes mellitus with diabetic neuropathy, unspecified; G25.0 Essential tremor; Z87.891 Personal history of nicotine dependence; Z79.85 Long-term (current) use of injectable non-insulin antidiabetic drugs; Z79.01 Long term (current) use of anticoagulants
CPT/HCPCS: 93312; 93320; 93325; 82962

== ENCOUNTER → 2025-07-29 06:38 | Outpatient (REF) | payer OTHER, SELFPAY | LOC: MRI 3T 06:38 | PROVIDERS: ATTENDING PHYSICIAN Physician Assistant Medical; FAMILY PHYSICIAN Family Medicine | DX: M48.062 Spinal stenosis, lumbar region with neurogenic claudication (principal); M48.02 Spinal stenosis, cervical region | CPT/HCPCS: 72141; 72148 ==